=== PATIENT | female | born 1935 | race Caucasian/White ===

== ENCOUNTER 2018-05-05 23:10 | Emergency (ER) | payer MEDICARE, MEDICAID ==
[~2018-05-05] VITALS: Ht 162.6 cm; Wt 81.8 kg
[~2018-05-05 23:10] MED LIST: GEMF600T4 PO; HYDR-569 PO; METO-136 PO; NITR0.4T51 SL; ONDA4TAB59 PO; PANT40TA39 PO; PRAV20TA60 PO
[2018-05-06 00:31] LABS: ALANINE AMINOTRANSFERASE 13 U/L (12-78); ALBUMIN 3.3 G/DL (3.4-5.0); ALBUMIN/GLOBULIN RATIO 0.8 (1.1-1.5); ALKALINE PHOSPHATASE 117 IU/L (46-116); ANION GAP 6 (8-16); ASPARTATE AMINO TRANSFERASE 21 U/L (10-37); BILIRUBIN,TOTAL 0.2 MG/DL (0.1-1.0); BLOOD UREA NITROGEN 15 MG/DL (7-18); BUN/CREATININE RATIO 16.5 (6.6-38.0); CALCIUM 8.7 MG/DL (8.5-10.1); CHLORIDE 104 MMOL/L (99-107); CREATININE 0.91 MG/DL (0.40-0.90); GLUCOSE 94 MG/DL (70-104); POTASSIUM 3.6 MMOL/L (3.5-5.1); SODIUM 142 MMOL/L (135-145); TOTAL CARBON DIOXIDE 31.8 MMOL/L (24-32); TOTAL PROTEIN 7.4 G/DL (6.4-8.2); eGFR 59 ML/MIN
[2018-05-06 00:34] LABS: BASOPHILS # (AUTO) 0.1 X10'3 (0-0.2); BASOPHILS % (AUTO) 1.1 % (0-1); EOSINOPHILS # (AUTO) 0.4 X10'3 (0-0.9); EOSINOPHILS % (AUTO) 6.7 % (0-6); HEMATOCRIT 37.3 % (35.0-45.0); HEMOGLOBIN 12.5 g/dl (12.0-16.0); LYMPHOCYTES # (AUTO) 1.8 X10'3 (1.1-4.8); LYMPHOCYTES % (AUTO) 27.7 % (21-51); MEAN CORPUSCULAR HEMOGLOBIN 30.5 PG (27.0-31.0); MEAN CORPUSCULAR HGB CONC 33.4 % (33.0-36.5); MEAN CORPUSCULAR VOLUME 91.3 FL (78-98); MEAN PLATELET VOLUME 7.5 FL (7.4-10.4); MONOCYTES # (AUTO) 0.7 X10'3 (0-0.9); MONOCYTES % (AUTO) 10.9 % (2-12); NEUTROPHILS # (AUTO) 3.5 X10'3 (1.8-7.7); NEUTROPHILS % (AUTO) 53.6 % (42-75); PLATELET COUNT 297 X10'3 (140-440); RED BLOOD COUNT 4.09 X10'6 (4.20-5.60); RED CELL DISTRIBUTION WIDTH 12.8 % (11.5-14.5); WHITE BLOOD COUNT 6.5 X10'3 (4.5-11.0)
[2018-05-06 00:43] LABS: D-DIMER 0.63 MG/L FEU (0-0.50)
[2018-05-06] MEDS ORDERED: furosemide 20MG tablet PO ONE (02:50)
[2018-05-06] MEDS ORDERED: levoFLOXACIN 750MG TABLET PO ONE (03:45)
[2018-05-06] MEDS ORDERED: LEVO500T2 PO (03:52)
[2018-05-06 04:14] VITALS: BP 180/85
== END 2018-05-06 04:32 | disposition home or self-care (01) ==
LOC: ER 23:11
DX: J18.9 Pneumonia, unspecified organism (principal); R79.89 Other specified abnormal findings of blood chemistry; I10 Essential (primary) hypertension; I25.2 Old myocardial infarction; J44.9 Chronic obstructive pulmonary disease, unspecified; F17.200 Nicotine dependence, unspecified, uncomplicated; Z98.61 Coronary angioplasty status; Z90.710 Acquired absence of both cervix and uterus; Z98.890 Other specified postprocedural states; Z88.5 Allergy status to narcotic agent; Z79.899 Other long term (current) drug therapy
CPT/HCPCS: 36415; 71045; 71250; 80053; 83605; 83880; 85025; 85379; 93005; 99285

== ENCOUNTER 2020-10-02 17:03 | Emergency (ER) | payer MEDICARE, MEDICAID ==
[~2020-10-02 17:03] MED LIST changes: -GEMF600T4 PO; +GEMF600T89 PO; -HYDR-569 PO; -NITR0.4T51 SL; -ONDA4TAB59 PO; -PANT40TA39 PO
--- NOTE | 2020-10-02 17:54 | NUR ---
Pt up to bedside commode.
[2020-10-02 18:47] VITALS: BP 212/97
== END 2020-10-02 19:08 | disposition home or self-care (01) ==
LOC: ER 17:04
DX: R05 Cough (principal); M25.562 Pain in left knee; J34.89 Other specified disorders of nose and nasal sinuses; Z20.822 Contact with and (suspected) exposure to COVID-19; I10 Essential (primary) hypertension; I25.2 Old myocardial infarction; J44.9 Chronic obstructive pulmonary disease, unspecified; Z90.710 Acquired absence of both cervix and uterus; Z90.89 Acquired absence of other organs; Z98.890 Other specified postprocedural states; Z88.5 Allergy status to narcotic agent; Z79.899 Other long term (current) drug therapy; W19.XXXA Unspecified fall, initial encounter; Y93.89 Activity, other specified; Y92.89 Other specified places as the place of occurrence of the external cause; Y99.8 Other external cause status
CPT/HCPCS: 71045; 87635; 99284; C9803

== ENCOUNTER 2022-02-19 04:32 | Inpatient (IN) | payer MEDICARE, MEDICAID ==
[~2022-02-19] VITALS: Ht 162.6 cm; Wt 96.9 kg
[2022-02-19 04:59] LABS: BASOPHILS # (AUTO) 0.1 X10'3 (0-0.2); BASOPHILS % (AUTO) 0.8 % (0-1); EOSINOPHILS # (AUTO) 0.4 X10'3 (0-0.9); EOSINOPHILS % (AUTO) 3.1 % (0-6); HEMATOCRIT 40.3 % (35.0-45.0); LYMPHOCYTES # (AUTO) 1.7 X10'3 (1.1-4.8); LYMPHOCYTES % (AUTO) 13.7 % (21-51); MEAN CORPUSCULAR HEMOGLOBIN 28.5 PG (27.0-31.0); MEAN CORPUSCULAR HGB CONC 32.1 g/dL (33.0-36.5); MEAN CORPUSCULAR VOLUME 88.8 FL (78-98); MEAN PLATELET VOLUME 7.3 FL (7.4-10.4); MONOCYTES # (AUTO) 1.1 X10'3 (0-0.9); MONOCYTES % (AUTO) 8.7 % (2-12); NEUTROPHILS # (AUTO) 9.3 X10'3 (1.8-7.7); NEUTROPHILS % (AUTO) 73.7 % (42-75); PLATELET COUNT 319 X10'3 (140-440); RED CELL DISTRIBUTION WIDTH 13.7 % (11.5-14.5)
[2022-02-19 05:05] LABS: RED BLOOD COUNT 4.54 X10'6 (4.20-5.60); WHITE BLOOD COUNT 12.7 X10'3 (4.5-11.0)
[2022-02-19] MEDS ORDERED: nitroGLYCERIN 0.4mg/hour patch TD ONE (05:10)
[2022-02-19] MEDS ORDERED: ipratropium/albuterol 3ml nebule NEB ONE (05:10)
[2022-02-19 05:13] LABS: ALANINE AMINOTRANSFERASE 25 U/L (12-78); ALBUMIN 3.1 G/DL (3.4-5.0); ALBUMIN/GLOBULIN RATIO 0.6 (1.1-1.5); ALKALINE PHOSPHATASE 98 IU/L (46-116); ANION GAP 7 (8-16); ASPARTATE AMINO TRANSFERASE 25 U/L (10-37); BILIRUBIN,TOTAL 0.4 MG/DL (0.1-1.0); BLOOD UREA NITROGEN 16 MG/DL (7-18); BUN/CREATININE RATIO 18.4 (6.6-38.0); CALCIUM 8.6 MG/DL (8.5-10.1); CHLORIDE 103 MMOL/L (99-107); CREATININE 0.87 MG/DL (0.40-0.90); GLUCOSE 144 MG/DL (70-104); POTASSIUM 3.5 MMOL/L (3.5-5.1); SODIUM 139 MMOL/L (135-145); TOTAL CARBON DIOXIDE 28.6 MMOL/L (24-32); eGFR 62 ML/MIN
[2022-02-19] MEDS ORDERED: ASPI81TA61 (07:09)
[2022-02-19] MEDS ORDERED: magnesium hydroxide 30ml (MOM) UD suspension PO PRN (08:15)
[2022-02-19] MEDS ORDERED: bisacodyl 10mg suppository rectal RC PRN (08:15)
[2022-02-19] MEDS ORDERED: POTASSIUM BICARB 20meq eff tab 20 MEQ TABLET.EFF PO PRN (08:15)
[2022-02-19] MEDS ORDERED: magnesium 2GM in 50ml NS 50 ML IV PRN (08:15)
[2022-02-19] MEDS ORDERED: ondansetron/PF 4mg/2ml inj IV PRN (08:15)
[2022-02-19] MEDS ORDERED: mag hydrox/Alum hydrox/simeth 30ml oral suspension PO PRN (08:15)
[2022-02-19] MEDS ORDERED: HYDROcodone/acetaminophen 10/325mg tab PO PRN (08:15)
[2022-02-19] MEDS ORDERED: ipratropium/albuterol 3ml nebule NEB PRN (08:15)
[2022-02-19] MEDS ORDERED: magnesium Cl slow-release 64mg tablet PO PRN (08:15)
[2022-02-19] MEDS ORDERED: acetaminophen 325mg tablet PO PRN (08:15)
[2022-02-19] MEDS ORDERED: potassium CL 10mEq/100ml bag 100 ML IV PRN (08:15)
[2022-02-19] MEDS ORDERED: ondansetron 4mg rapidly disintigrating tab PO PRN (08:15)
[2022-02-19] MEDS ORDERED: methylPREDNISolone sod succ 125mg/2ml vial IV ONE (08:15)
[2022-02-19] MEDS ORDERED: PERFLUTREN PROTEIN-A MICROSPHR (Optison) 0.22 MG/ML 3ML VIAL IV ONE (08:15)
[2022-02-19] MEDS ORDERED: HYDROcodone/acetaminophen 5mg/325mg tablet PO PRN (08:15)
[2022-02-19] MEDS ORDERED: morphine 2 MG/ML inj. syringe IV PRN ×2 (08:15)
[2022-02-19] MEDS ORDERED: magnesium 4gm in 100ml NS 100 ML IV PRN (08:15)
[2022-02-19 08:36] LABS: MAGNESIUM 1.9 MG/DL (1.5-2.4); POTASSIUM 3.9 MMOL/L (3.5-5.1)
[2022-02-19] MEDS: ipratropium/albuterol 3ml nebule NEB SCH ×4 (11:00→23:47)
[2022-02-19] MEDS ORDERED: ATOR40TA72 PO (13:28)
[2022-02-19] MEDS ORDERED: ASPI-1071 PO (13:29)
[2022-02-19] MEDS: methylPREDNISolone sod succ 125mg/2ml vial IV SCH ×2 (14:10→19:57)
--- NOTE | 2022-02-19 18:49 | NUR ---
NOTIFIED DR. RONQUILLO OF BP OF 198/123.
[2022-02-19] MEDS ORDERED: hydrALAZINE 20mg/ml inj. IV PRN (18:50)
--- NOTE | 2022-02-19 19:42 | NUR ---
RESP in room.
[2022-02-19] MEDS: furosemide 40mg/4ml inj IV SCH (19:57)
[2022-02-19] MEDS: enoxaparin 40mg/0.4ml syringe SQ SCH (19:57)
[2022-02-19] MEDS: docusate sod 100mg capsule PO SCH (20:00)
[2022-02-19] MEDS: K and/or MAG REPLACEMENT MC SCH (20:00)
[2022-02-19] MEDS: metoprolol tartrate 50mg tablet PO SCH (20:00)
[2022-02-19] MEDS ORDERED: temazepam 15mg capsule PO PRN (21:00)
[2022-02-20] MEDS: methylPREDNISolone sod succ 125mg/2ml vial IV SCH ×4 (02:25→19:27)
[2022-02-20 06:00] VITALS: BP 154/76
[2022-02-20 06:54] LABS: BASOPHILS % (AUTO) 0.1 % (0-1); EOSINOPHILS % (AUTO) 0 % (0-6); HEMOGLOBIN 12.1 g/dl (12.0-16.0); LYMPHOCYTES # (AUTO) 0.6 X10'3 (1.1-4.8); MEAN CORPUSCULAR HGB CONC 32.7 g/dL (33.0-36.5); MEAN CORPUSCULAR VOLUME 88.7 FL (78-98); MEAN PLATELET VOLUME 7.5 FL (7.4-10.4); MONOCYTES # (AUTO) 0.3 X10'3 (0-0.9); NEUTROPHILS # (AUTO) 10.6 X10'3 (1.8-7.7); NEUTROPHILS % (AUTO) 91.9 % (42-75); PLATELET COUNT 306 X10'3 (140-440); RED BLOOD COUNT 4.17 X10'6 (4.20-5.60); RED CELL DISTRIBUTION WIDTH 13.6 % (11.5-14.5); WHITE BLOOD COUNT 11.6 X10'3 (4.5-11.0)
[2022-02-20] MEDS: ipratropium/albuterol 3ml nebule NEB SCH ×5 (07:00→23:27)
[2022-02-20 07:06] LABS: ALANINE AMINOTRANSFERASE 27 U/L (12-78); ALBUMIN/GLOBULIN RATIO 0.7 (1.1-1.5); ALKALINE PHOSPHATASE 92 IU/L (46-116); ANION GAP 7 (8-16); ASPARTATE AMINO TRANSFERASE 28 U/L (10-37); BILIRUBIN,TOTAL 0.5 MG/DL (0.1-1.0); BLOOD UREA NITROGEN 22 MG/DL (7-18); BUN/CREATININE RATIO 23.7 (6.6-38.0); CALCIUM 9.1 MG/DL (8.5-10.1); CHLORIDE 100 MMOL/L (99-107); CHOL/HDL RATIO 2.3 (0.00-4.99); CHOLESTEROL 136 MG/DL (0-200); CREATININE 0.93 MG/DL (0.40-0.90); GLUCOSE 156 MG/DL (70-104); HDL CHOLESTEROL 58 MG/DL (35-60); LDL CHOLESTEROL 58 MG/DL (50-100); MAGNESIUM 1.9 MG/DL (1.5-2.4); POTASSIUM 3.2 MMOL/L (3.5-5.1); SODIUM 139 MMOL/L (135-145); TOTAL CARBON DIOXIDE 32.4 MMOL/L (24-32); TOTAL PROTEIN 7.5 G/DL (6.4-8.2); TRIGLYCERIDES 56 MG/DL (20-135); eGFR 57 ML/MIN
[2022-02-20] MEDS: K and/or MAG REPLACEMENT MC SCH ×2 (08:00→20:58)
[2022-02-20] MEDS ORDERED: aspirin 81mg, enteric-coated 1 TAB TABLET.DR PO SCH (08:00)
[2022-02-20] MEDS: furosemide 40mg/4ml inj IV SCH ×2 (08:50→19:27)
[2022-02-20] MEDS: metoprolol tartrate 50mg tablet PO SCH ×2 (08:50→19:28)
[2022-02-20] MEDS: aspirin 81mg, enteric-coated 1 TAB TABLET.DR PO SCH (08:50)
[2022-02-20] MEDS: docusate sod 100mg capsule PO SCH ×2 (08:50→19:27)
[2022-02-20] MEDS: atorvastatin 20mg tablet PO SCH (08:50)
[2022-02-20] MEDS: POTASSIUM BICARB 20meq eff tab 20 MEQ TABLET.EFF PO PRN ×3 (08:56→17:48)
[2022-02-20 11:00] VITALS: BP 142/66
[2022-02-20 15:00] VITALS: BP 123/67
[2022-02-20 18:00] VITALS: BP 139/68
[2022-02-20] MEDS: enoxaparin 40mg/0.4ml syringe SQ SCH (19:29)
[2022-02-20 22:30] VITALS: BP 128/61
[2022-02-21] MEDS: methylPREDNISolone sod succ 125mg/2ml vial IV SCH ×4 (01:37→20:40)
[2022-02-21 01:43] VITALS: BP 144/80
[2022-02-21 06:00] VITALS: BP 157/83
[2022-02-21 06:50] LABS: BASOPHILS % (AUTO) 0 % (0-1); EOSINOPHILS % (AUTO) 0 % (0-6); HEMATOCRIT 37.3 % (35.0-45.0); HEMOGLOBIN 12.4 g/dl (12.0-16.0); LYMPHOCYTES # (AUTO) 0.5 X10'3 (1.1-4.8); MEAN CORPUSCULAR HEMOGLOBIN 29.1 PG (27.0-31.0); MEAN CORPUSCULAR HGB CONC 33.1 g/dL (33.0-36.5); MEAN CORPUSCULAR VOLUME 87.8 FL (78-98); MEAN PLATELET VOLUME 7.6 FL (7.4-10.4); MONOCYTES # (AUTO) 0.7 X10'3 (0-0.9); NEUTROPHILS # (AUTO) 15.8 X10'3 (1.8-7.7); PLATELET COUNT 339 X10'3 (140-440); RED BLOOD COUNT 4.25 X10'6 (4.20-5.60); RED CELL DISTRIBUTION WIDTH 13.8 % (11.5-14.5)
[2022-02-21 07:13] LABS: ALANINE AMINOTRANSFERASE 33 U/L (12-78); ALBUMIN 2.9 G/DL (3.4-5.0); ALBUMIN/GLOBULIN RATIO 0.7 (1.1-1.5); ALKALINE PHOSPHATASE 82 IU/L (46-116); ANION GAP 5 (8-16); ASPARTATE AMINO TRANSFERASE 42 U/L (10-37); BILIRUBIN,TOTAL 0.3 MG/DL (0.1-1.0); BLOOD UREA NITROGEN 37 MG/DL (7-18); BUN/CREATININE RATIO 36.6 (6.6-38.0); CHLORIDE 101 MMOL/L (99-107); CREATININE 1.01 MG/DL (0.40-0.90); GLUCOSE 150 MG/DL (70-104); MAGNESIUM 2.1 MG/DL (1.5-2.4); POTASSIUM 3.5 MMOL/L (3.5-5.1); SODIUM 140 MMOL/L (135-145); TOTAL CARBON DIOXIDE 34.5 MMOL/L (24-32); TOTAL PROTEIN 7.2 G/DL (6.4-8.2); eGFR 52 ML/MIN
[2022-02-21] MEDS: K and/or MAG REPLACEMENT MC SCH ×2 (08:00→20:00)
[2022-02-21] MEDS: ipratropium/albuterol 3ml nebule NEB SCH ×5 (08:23→23:00)
[2022-02-21] MEDS: aspirin 81mg, enteric-coated 1 TAB TABLET.DR PO SCH (08:59)
[2022-02-21] MEDS: metoprolol tartrate 50mg tablet PO SCH ×2 (08:59→20:39)
[2022-02-21] MEDS: docusate sod 100mg capsule PO SCH ×2 (08:59→20:39)
[2022-02-21] MEDS: atorvastatin 20mg tablet PO SCH (08:59)
[2022-02-21] MEDS: furosemide 40mg/4ml inj IV SCH (09:00)
[2022-02-21 11:00] VITALS: BP 128/69
[2022-02-21] MEDS: acetaminophen 325mg tablet PO PRN (14:18)
[2022-02-21 15:00] VITALS: BP 128/58
[2022-02-21 18:00] VITALS: BP 107/58
[2022-02-21] MEDS: enoxaparin 40mg/0.4ml syringe SQ SCH (20:40)
[2022-02-21 22:00] VITALS: BP 115/67
[2022-02-22] MEDS: methylPREDNISolone sod succ 125mg/2ml vial IV SCH ×3 (02:43→13:49)
[2022-02-22 03:39] VITALS: BP 144/69
[2022-02-22 06:00] VITALS: BP 155/88
[2022-02-22] MEDS: ipratropium/albuterol 3ml nebule NEB SCH ×2 (07:02→10:55)
[2022-02-22] MEDS: aspirin 81mg, enteric-coated 1 TAB TABLET.DR PO SCH (07:26)
[2022-02-22] MEDS: acetaminophen 325mg tablet PO PRN ×2 (07:26→13:50)
[2022-02-22] MEDS: docusate sod 100mg capsule PO SCH (07:27)
[2022-02-22] MEDS: atorvastatin 20mg tablet PO SCH (07:27)
[2022-02-22] MEDS: metoprolol tartrate 50mg tablet PO SCH (07:28)
[2022-02-22] MEDS ORDERED: furosemide 40mg/4ml inj IV SCH (08:00)
[2022-02-22] MEDS: K and/or MAG REPLACEMENT MC SCH (08:00)
[2022-02-22 08:01] LABS: BASOPHILS % (AUTO) 0.1 % (0-1); EOSINOPHILS % (AUTO) 0 % (0-6); HEMATOCRIT 37.2 % (35.0-45.0); HEMOGLOBIN 12.2 g/dl (12.0-16.0); LYMPHOCYTES # (AUTO) 0.5 X10'3 (1.1-4.8); LYMPHOCYTES % (AUTO) 3.5 % (21-51); MEAN CORPUSCULAR HEMOGLOBIN 29.3 PG (27.0-31.0); MEAN CORPUSCULAR HGB CONC 32.9 g/dL (33.0-36.5); MEAN PLATELET VOLUME 8.1 FL (7.4-10.4); MONOCYTES # (AUTO) 0.7 X10'3 (0-0.9); MONOCYTES % (AUTO) 4.4 % (2-12); NEUTROPHILS # (AUTO) 14.2 X10'3 (1.8-7.7); PLATELET COUNT 322 X10'3 (140-440); RED BLOOD COUNT 4.18 X10'6 (4.20-5.60); RED CELL DISTRIBUTION WIDTH 13.8 % (11.5-14.5); WHITE BLOOD COUNT 15.5 X10'3 (4.5-11.0)
[2022-02-22 08:52] LABS: ALANINE AMINOTRANSFERASE 37 U/L (12-78); ALBUMIN 2.6 G/DL (3.4-5.0); ALBUMIN/GLOBULIN RATIO 0.7 (1.1-1.5); ALKALINE PHOSPHATASE 71 IU/L (46-116); ANION GAP 9 (8-16); ASPARTATE AMINO TRANSFERASE 35 U/L (10-37); BILIRUBIN,TOTAL 0.3 MG/DL (0.1-1.0); BLOOD UREA NITROGEN 39 MG/DL (7-18); BUN/CREATININE RATIO 35.8 (6.6-38.0); CALCIUM 8.6 MG/DL (8.5-10.1); CHLORIDE 100 MMOL/L (99-107); CREATININE 1.09 MG/DL (0.40-0.90); GLUCOSE 129 MG/DL (70-104); MAGNESIUM 2.1 MG/DL (1.5-2.4); POTASSIUM 3.7 MMOL/L (3.5-5.1); SODIUM 141 MMOL/L (135-145); TOTAL CARBON DIOXIDE 32.5 MMOL/L (24-32); TOTAL PROTEIN 6.6 G/DL (6.4-8.2); eGFR 48 ML/MIN
[2022-02-22] MEDS ORDERED: iohexol 300mg/ml 100ml inj. ONE (09:23)
--- NOTE | 2022-02-22 10:17 | NUR ---
MD in room, UA just collected, per MD, UA not needed as the urine is clear and no sediment. Cancelled UA
[2022-02-22] MEDS ORDERED: FURO-150 PO ×2 (10:55)
[2022-02-22] MEDS ORDERED: IPRA4AER IH ×2 (10:55)
[2022-02-22] MEDS ORDERED: PRED20TA PO ×2 (10:55)
[2022-02-22] MEDS ORDERED: POTA10TA37 PO ×2 (10:55)
[2022-02-22 11:00] VITALS: BP 150/80
--- NOTE | 2022-02-22 13:50 | NUR ---
Patient is getting ready to be d/c'd and I left to go get her solumedrol due at 1400. When I came back she had accidentally pulled out her PIV. Tip intact. Pt tolerated well.
--- NOTE | 2022-02-22 14:45 | NUR ---
Pt stable for d/c per MD order All d/c ppwk was reviewed with pt and pt son, Shree. All questions, comment and concerns were answered at this time. New RX was sent to [facility] of [facility]. Appt was made with Dr Lee for 03/18/22 @ 0900. Pt will be going home with home health per MD notes in d/c ppwk. All personal belongings were removed from room and packed in belongings bag. Pt took all personal belongings with her and was wheeled down in W/C by nursing staff to private vehicle where son, Shree, was waiting. PIV was removed - pt tolerated well. 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
[2022-02-25] MEDS ORDERED: POTA-192 PO (16:41)
[2022-02-25] MEDS ORDERED: FURO-150 PO (16:41)
[2022-02-25] MEDS ORDERED: IPRA4AER IH (16:41)
[2022-02-26] MEDS ORDERED: PRED20TA PO (10:14)
[2022-02-28] MEDS ORDERED: AMOX-419 PO (09:37)
== END 2022-02-22 14:35 | disposition home health service (06) | DRG 189 ==
LOC: ER 04:32 → ED HOLD 08:20 → PCU 3S 02-20 05:37
PROVIDERS: ADMIT Family Medicine; ATTEND Family Medicine
PROC: B0201ZZ Computerized Tomography (CT Scan) of Brain using Low Osmolar Contrast (ICD-10-PCS; principal; 2022-02-22)
DX: J96.01 Acute respiratory failure with hypoxia (principal); I50.33 Acute on chronic diastolic (congestive) heart failure; N17.0 Acute kidney failure with tubular necrosis; J44.1 Chronic obstructive pulmonary disease with (acute) exacerbation; I11.0 Hypertensive heart disease with heart failure; E78.5 Hyperlipidemia, unspecified; I27.20 Pulmonary hypertension, unspecified; E87.6 Hypokalemia; I25.10 Atherosclerotic heart disease of native coronary artery without angina pectoris; G31.84 Mild cognitive impairment of uncertain or unknown etiology; Z86.73 Personal history of transient ischemic attack (TIA), and cerebral infarction without residual deficits; Z88.5 Allergy status to narcotic agent; I25.2 Old myocardial infarction; Z90.710 Acquired absence of both cervix and uterus; Z90.10 Acquired absence of unspecified breast and nipple; Z87.891 Personal history of nicotine dependence; Z95.5 Presence of coronary angioplasty implant and graft; Z90.49 Acquired absence of other specified parts of digestive tract; Z90.711 Acquired absence of uterus with remaining cervical stump
CPT/HCPCS: 36415; 70470; 71045; 80053; 80061; 83735; 83880; 84132; 84484; 85025; 87081; 93005; 93306; 94640; 94760; 97110; 97116; 97161; 97530; 99285; A4615; G0378; J0360; J1650; J1940; J2930; J3490; Q9967